=== PATIENT | female | born 1970 | race African-American/Black ===

== ENCOUNTER 2016-12-14 15:46 | Emergency (ER) | payer MEDICARE, OTHER ==
[2016-12-14 15:56] VITALS: BP 124/77; PULSE 82; RESP 20; TEMP 98.8
--- NOTE | 2016-12-14 16:26 | ED ---
ENT HPI - General Chief complaint: ENT Stated complaint: jaw swelling Time Seen by Provider: 12/14/16 16:20 Source: patient Mode of arrival: ambulatory Limitations: no limitations - History of Present Illness Initial comments: Patient is a 46-year-old female presenting to the emergency department with complaints of tooth pain and facial swelling to the right side of her face. Patient states she woke up with the facial swelling this morning. Patient currently complains of pain to tooth #2. Denies chills, fevers, nausea, vomiting, shortness of breath, chest pain, abdominal pain, trismus, or dysphagia. MD complaint: tooth pain Onset/Timin -: days(s) Location: tooth # (2) Severity: mild Severity scale (1-10): 2 Quality: dull Consistency: intermittent Improves with: NSAID Worsens with: eating Context- Dental: history of dental caries Associated Symptoms: toothache - Related Data Home Medications Medication Instructions Recorded Confirmed Citalopram Hydrobromide 40 mg PO DAILY 12/10/14 04/25/16 [Citalopram HBr] Multivitamins, Thera [Multivitamin] 1 tab PO DAILY 04/25/16 04/25/16 buPROPion HCL [Wellbutrin XL] 150 mg PO DAILY 04/25/16 04/25/16 Previous Rx's Medication Instructions Recorded Clindamycin [Cleocin] 300 mg PO Q6H 10 Days 04/25/16 Ibuprofen [Motrin] 800 mg PO Q6HR PRN #30 tab 04/25/16 Ibuprofen [Motrin] 800 mg PO TID PRN #20 tab 12/14/16 Penicillin V Potassium [Pen Vee K] 500 mg PO QID #28 tab 12/14/16 Allergies Allergy/AdvReac Type Severity Reaction Status Date / Time No Known Allergies Allergy Verified 12/14/16 15:56 Review of Systems ROS Statement: Those systems with pertinent positive or pertinent negative responses have been documented in the HPI. ROS Other: All systems not noted in ROS Statement are negative. Past Medical History Past Medical History: No Reported History History of Any Multi-Drug Resistant Organisms: None Reported Past Surgical History: Section, Orthopedic Surgery Additional Past Surgical History / Comment(s): left knee Past Psychological History: Anxiety, Depression Smoking Status: Current every day smoker Past Alcohol Use History: None Reported Past Drug Use History: None Reported General Exam Limitations: no limitations General appearance: alert, in no apparent distress Head exam: Present: atraumatic, normocephalic, normal inspection Eye exam: Present: normal appearance, PERRL, EOMI. Absent: scleral icterus, conjunctival injection, periorbital swelling Expanded Ear exam: Present: normal external inspection Mouth exam: Present: tongue normal. Absent: normal external inspection ( Swelling to right upper jaw), drooling, trismus, tongue elevation Teeth exam: Present: dental tenderness # (2), other (No obvious abscess noted.) . Absent: gingival enlargement Throat exam: normal inspection. negative: tonsillar erythema, tonsillomegaly, tonsillar exudate, R peritonsillar mass, L peritonsillar mass Neck exam: Present: normal inspection, full ROM. Absent: tenderness, lymphadenopathy Respiratory exam: Present: normal lung sounds bilaterally. Absent: respiratory distress, wheezes, rales, rhonchi, stridor Cardiovascular Exam: Present: regular rate, normal rhythm, normal heart sounds GI/Abdominal exam: Present: soft, normal bowel sounds. Absent: tenderness Extremities exam: Present: normal inspection, full ROM. Absent: tenderness Neurological exam: Present: alert, oriented X3, normal gait, other (No focal deficits) Psychiatric exam: Present: normal affect, normal mood Skin exam: Present: warm, dry, intact, normal color Course Vital Signs 12/14/16 15:54 Temperature 98.8 F Pulse Rate 82 Respiratory 20 Rate Blood Pressure 124/77 O2 Sat by Pulse 99 Oximetry Medical Decision Making - Medical Decision Making Dental abscess with toothache to tooth #2. Patient given prescription for penicillin and Motrin and instructed to apply warm compresses. Patient instructed to follow-up with dentist. Patient agrees with treatment plan. Discharge instructions and return parameters reviewed. Disposition Clinical Impression: Dental abscess Disposition: HOME SELF-CARE Condition: Good Instructions: Dental Abscess (ED) Additional Instructions: Continue medication as prescribed. Continue Motrin for pain as necessary. Apply warm compresses 3-4 times a day for 15 minutes to help swelling. Please return to the emergency department in next 24-48 hours if symptoms do not improve or get worse such as swelling gets worse, fevers, difficulty opening her jaw, difficulty swallowing, nausea or vomiting. Follow-up with dentist. Follow-up with primary care physician as needed. Prescriptions: Ibuprofen [Motrin] 800 mg PO TID PRN #20 tab PRN Reason: Pain Penicillin V Potassium [Pen Vee K] 500 mg PO QID #28 tab Referrals: Eugenia Small MD [Primary Care Provider] - 1-2 days Time of Disposition: 16:25
[2016-12-14] MEDS ORDERED: PENICILLIN V POTASSIUM 250 MG TAB PO STA (16:27)
[2016-12-14] MEDS ORDERED: IBUPROFEN 800 MG TAB PO STA (16:28)
== END 2016-12-14 16:52 | disposition home or self-care (01) ==
LOC: EC 15:46
DX: K04.7 Periapical abscess without sinus (principal); F32.9 Major depressive disorder, single episode, unspecified; F41.9 Anxiety disorder, unspecified; F17.200 Nicotine dependence, unspecified, uncomplicated; Z79.899 Other long term (current) drug therapy
CPT/HCPCS: 99283

== ENCOUNTER 2016-12-15 17:57 | Emergency (ER) | payer MEDICARE, OTHER ==
[2016-12-15 18:22] VITALS: BP 135/104; PULSE 83; RESP 16; TEMP 98.9
[2016-12-15] MEDS ORDERED: HYDROcodone/APAP 5-325MG 1 EACH TAB PO STA (19:04)
--- NOTE | 2016-12-15 19:04 | ED ---
ENT HPI - General Chief complaint: Dental/Oral Stated complaint: Dental Time Seen by Provider: 12/15/16 18:42 Source: patient, RN notes reviewed Mode of arrival: ambulatory Limitations: no limitations - History of Present Illness Initial comments: Patient is a 46-year-old male presents to the emergency room for evaluation of dental pain. Patient states she's here yesterday for the same issue. Patient states she began taking antibiotics ibuprofen. Patient states she still having significant amount of pain. Patient states the ibuprofen is not helping. Patient denies any fevers or chills. Patient denies trouble swallowing. Patient denies trouble breathing. Patient states the dentist will not see her until the swelling has subsided. Patient denies any new symptoms or complaints from yesterday. Patient states she needs something to help her with pain. - Related Data Home Medications Medication Instructions Recorded Confirmed Citalopram Hydrobromide 40 mg PO DAILY 12/10/14 04/25/16 [Citalopram HBr] Multivitamins, Thera [Multivitamin] 1 tab PO DAILY 04/25/16 04/25/16 buPROPion HCL [Wellbutrin XL] 150 mg PO DAILY 04/25/16 04/25/16 Previous Rx's Medication Instructions Recorded Clindamycin [Cleocin] 300 mg PO Q6H 10 Days 04/25/16 Ibuprofen [Motrin] 800 mg PO Q6HR PRN #30 tab 04/25/16 Ibuprofen [Motrin] 800 mg PO TID PRN #20 tab 12/14/16 Penicillin V Potassium [Pen Vee K] 500 mg PO QID #28 tab 12/14/16 HYDROcodone/APAP 5-325MG [[place] 1 tab PO Q6HR PRN #12 tab 12/15/16 5-325] Allergies Allergy/AdvReac Type Severity Reaction Status Date / Time No Known Allergies Allergy Verified 12/14/16 15:56 Review of Systems ROS Statement: Those systems with pertinent positive or pertinent negative responses have been documented in the HPI. ROS Other: All systems not noted in ROS Statement are negative. Past Medical History Past Medical History: No Reported History History of Any Multi-Drug Resistant Organisms: None Reported Past Surgical History: Section, Orthopedic Surgery Additional Past Surgical History / Comment(s): left knee Past Psychological History: Anxiety, Depression Smoking Status: Current every day smoker Past Alcohol Use History: None Reported Past Drug Use History: None Reported General Exam - General Exam Comments Initial Comments: Sitting on exam bed, no acute distress. Limitations: no limitations General appearance: alert, in no apparent distress Head exam: Present: atraumatic, normocephalic, normal inspection Eye exam: Present: normal appearance Expanded Mouth exam: Present: other (Mild edema over right maxillary sinus area) Teeth exam: Present: dental caries, dental tenderness # (3/4) Throat exam: normal inspection Neck exam: Present: normal inspection, full ROM. Absent: tenderness, lymphadenopathy Respiratory exam: Present: normal lung sounds bilaterally. Absent: respiratory distress Cardiovascular Exam: Present: regular rate, normal rhythm, normal heart sounds Extremities exam: Present: normal inspection Back exam: Present: normal inspection Neurological exam: Present: alert, oriented X3, CN II-XII intact, normal gait Psychiatric exam: Present: normal affect, normal mood Skin exam: Present: warm, dry, intact, normal color. Absent: rash Course Vital Signs 12/15/16 18:18 Temperature 98.9 F Pulse Rate 83 Respiratory 16 Rate Blood Pressure 135/104 O2 Sat by Pulse 100 Oximetry Medical Decision Making - Medical Decision Making Patient is a 46-year-old female presents to the emergency room for evaluation of dental pain. Patient was here yesterday and given ibuprofen and antibiotics. Will send patient home with [place] and have her follow-up with a dentist. Patient states she understands everything that was discussed with her. Return parameters discussed. Disposition Clinical Impression: Dental abscess Disposition: HOME SELF-CARE Condition: Good Instructions: Dental Abscess (ED) Additional Instructions: Please follow up with a dentist. If you do not have a dentist, you may contact [facility]. Phone number is [phone] for existing clients. For new clients you may call [phone]. Another option is you have is the [employer] [facility]. Phone number is [phone]. Medications as directed. [place] gargles. Cold fluids can sometimes help with pain as well. Return to the Emergency Room for any worsening or changing symptoms. Use cold compresses to the outside of the face. Prescriptions: HYDROcodone/APAP 5-325MG [[place] 5-325] 1 tab PO Q6HR PRN #12 tab PRN Reason: Pain Referrals: Eugenia Small MD [Primary Care Provider] - 1-2 days Time of Disposition: 19:02
== END 2016-12-15 19:10 | disposition home or self-care (01) ==
LOC: EC 17:57
DX: K04.7 Periapical abscess without sinus (principal); F41.9 Anxiety disorder, unspecified; F32.9 Major depressive disorder, single episode, unspecified; F17.200 Nicotine dependence, unspecified, uncomplicated; Z79.899 Other long term (current) drug therapy
CPT/HCPCS: 99282

== ENCOUNTER 2016-12-22 12:23 | Emergency (ER) | payer MEDICARE, OTHER ==
[2016-12-22] MEDS ORDERED: predniSONE 50 MG TAB PO STA (13:21)
[2016-12-22 14:07] LABS: Anisocytosis Slight; Aty Lym Flag Marked; CH 25.9; CHCM 31.8; HCT 34.8 % (34.0-46.0); HDW 3.07; HGB 11.1 gm/dL (11.4-16.0); Hypochromasia Slight; MCHC 31.8 g/dL (31.0-37.0); MCV 81.8 fL (80.0-100.0); Mean Platelet Volume 7.8; RBC 4.25 m/uL (3.80-5.40); WBC 4.5 k/uL (3.8-10.6); WBC (Perox) 4.95
--- NOTE | 2016-12-22 14:13 | XR ---
EXAMINATION TYPE: XR chest 2V DATE OF EXAM: 12/22/2016 2:10 PM COMPARISON: 09/09/2015 HISTORY: Cough pneumonia TECHNIQUE: Frontal and lateral views of the chest are obtained. FINDINGS: There is no focal air space opacity, pleural effusion, or pneumothorax seen. The cardiac silhouette size is within normal limits. The osseous structures are intact. IMPRESSION: No acute cardiopulmonary process.
[2016-12-22 14:15] LABS: Anion Gap 10 mmol/L; Blood Urea Nitrogen 11 mg/dL (7-17); Carbon Dioxide 24 mmol/L (22-30); Chloride 105 mmol/L (98-107); Glucose 99 mg/dL (74-99); Non-African American GFR(MDRD) >60 (>60 ml/min/1.73 sqM); Potassium 3.9 mmol/L (3.5-5.1); Sodium 139 mmol/L (137-145)
--- NOTE | 2016-12-22 14:22 | ED ---
URI HPI - General Chief Complaint: Upper Respiratory Infection Stated Complaint: [place], Chest Tight Time Seen by Provider: 12/22/16 13:06 Source: patient Mode of arrival: ambulatory Limitations: no limitations - History of Present Illness Initial Comments: Planing about cough, bringing up lots of phlegm and feels chest is tight complaining about chest pain off-and-on with a cough for the last few days and it does get worse with the deep breaths. Denies any fever complaining about feeling cold all the time and it worse today area and she does smoke has been smoking for a long time. Denies any headaches no neck stiffness no chest pain or shortness of breath no abdominal pain no frequency urgency dysuria - Related Data Home Medications Medication Instructions Recorded Confirmed Citalopram Hydrobromide 40 mg PO DAILY 12/10/14 12/22/16 [Citalopram HBr] OXcarbazepine [Trileptal] 450 mg PO DAILY 12/22/16 12/22/16 buPROPion HCL [Bupropion HCl Sr] 150 mg PO DAILY 12/22/16 12/22/16 risperiDONE [RisperDAL] 2 mg PO HS 12/22/16 12/22/16 Previous Rx's Medication Instructions Recorded Ibuprofen [Motrin] 800 mg PO TID PRN #20 tab 12/14/16 Penicillin V Potassium [Pen Vee K] 500 mg PO QID #28 tab 12/14/16 Azithromycin [Zithromax Tri-David] 500 mg PO DAILY #3 tab 12/22/16 Allergies Allergy/AdvReac Type Severity Reaction Status Date / Time No Known Allergies Allergy Verified 12/22/16 13:31 Review of Systems ROS Statement: Those systems with pertinent positive or pertinent negative responses have been documented in the HPI. ROS Other: All systems not noted in ROS Statement are negative. Past Medical History Past Medical History: No Reported History History of Any Multi-Drug Resistant Organisms: None Reported Past Surgical History: Section, Orthopedic Surgery Additional Past Surgical History / Comment(s): left knee Past Psychological History: Anxiety, Depression Smoking Status: Current every day smoker Past Alcohol Use History: None Reported Past Drug Use History: None Reported General Exam - General Exam Comments Initial Comments: General: The patient is awake and alert, in no distress, and does not appear acutely ill. Skin: Skin is warm and dry and no rashes or lesions are noted. Eye: Pupils are equal, round and reactive to light, extra-ocular movements are intact; there is normal conjunctiva bilaterally. Ears, nose, mouth and throat: There are moist mucous membranes and no oral lesions. Neck: The neck is supple, there is no tenderness or JVD. Cardiovascular: There is a regular rate and rhythm. No murmur, rub or gallop is appreciated. Respiratory: To auscultation bilateral, exam is consistent with the COPD Gastrointestinal: Soft, non-distended, non-tender abdomen without masses or organomegaly noted. There is no rebound or guarding present. Bowel sounds are unremarkable. Back: There is no tenderness to palpation in the midline. There is no obvious deformity. Musculoskeletal: Normal ROM, no tenderness, There is no pedal edema. There is no calf tenderness or swelling. No cords were appreciated. Neurological: CN II-XII intact, Cranial nerves III through XII are intact. There are no obvious motor or sensory deficits. Coordination appears grossly intact. Speech is normal. Psychiatric: Cooperative, appropriate mood & affect, normal judgment. Limitations: no limitations Course Vital Signs 12/22/16 12/22/16 12:25 15:02 Temperature 99.3 F 100.9 F H Pulse Rate 107 H 98 Respiratory 16 18 Rate Blood Pressure 140/80 122/74 O2 Sat by Pulse 100 96 Oximetry EKG shows normal sinus rhythm ventricular rate is 81 ND interval is 150 QRS duration is 60 QT/QTc is 350/4:30 and review of this EKG does not reveal or show any ST elevation or ST depression or any T-wave inversion and active of any ischemic changes Patient was reassessed 3 times, her d-dimer is elevated Prompted CT angiogram though that came back negative, the CT showed an adrenal mass as well as herpetic lesions, those findings were discussed with the patient and she was advised to follow up with the Dr. Mir, he is her primary care physician so for the hepatic lesion she could have an outpatient ultrasound and for the atrial renal mass? She would need to follow up on that with further imaging. As far as her bronchitis is concerned she be gone home with the Zithromax, Z-David Medical Decision Making - Lab Data Result diagrams: 12/22/16 13:45 12/22/16 13:45 Lab Results 12/22/16 12/22/16 12/22/16 Range/Units 13:45 13:45 13:45 WBC 4.5 (3.8-10.6) k/uL RBC 4.25 (3.80-5.40) m/uL Hgb 11.1 L (11.4-16.0) gm/dL Hct 34.8 (34.0-46.0) % MCV 81.8 (80.0-100.0) fL MCH 26.0 (25.0-35.0) pg MCHC 31.8 (31.0-37.0) g/dL RDW 16.0 H (11.5-15.5) % Plt Count 269 (150-450) k/uL Neutrophils % (Manual) 46.0 % Lymphocytes % (Manual) 39.0 % Monocytes % (Manual) 15.0 % Neutrophils # (Manual) 2.1 (1.3-7.7) k/uL Lymphocytes # (Manual) 1.8 (1.0-4.8) k/uL Monocytes # (Manual) 0.7 (0-1.0) k/uL Nucleated RBCs 0 (0-0) /100 WBC Manual Slide Review Performed Large Platelets Present Hypochromasia Slight Poikilocytosis (manual Present Anisocytosis Slight D-Dimer 0.91 H (<0.60) mg/L FEU Sodium 139 (137-145) mmol/L Potassium 3.9 (3.5-5.1) mmol/L Chloride 105 (98-107) mmol/L Carbon Dioxide 24 (22-30) mmol/L Anion Gap 10 mmol/L BUN 11 (7-17) mg/dL Creatinine 0.74 (0.52-1.04) mg/dL Est GFR (MDRD) Af Amer >60 (>60 ml/min/1.73 sqM) Est GFR (MDRD) Non-Af >60 (>60 ml/min/1.73 sqM) Glucose 99 (74-99) mg/dL Calcium 9.0 (8.4-10.2) mg/dL Troponin I (0.000-0.034) ng/mL 12/22/16 Range/Units 13:45 WBC (3.8-10.6) k/uL RBC (3.80-5.40) m/uL Hgb (11.4-16.0) gm/dL Hct (34.0-46.0) % MCV (80.0-100.0) fL MCH (25.0-35.0) pg MCHC (31.0-37.0) g/dL RDW (11.5-15.5) % Plt Count (150-450) k/uL Neutrophils % (Manual) % Lymphocytes % (Manual) % Monocytes % (Manual) % Neutrophils # (Manual) (1.3-7.7) k/uL Lymphocytes # (Manual) (1.0-4.8) k/uL Monocytes # (Manual) (0-1.0) k/uL Nucleated RBCs (0-0) /100 WBC Manual Slide Review Large Platelets Hypochromasia Poikilocytosis (manual Anisocytosis D-Dimer (<0.60) mg/L FEU Sodium (137-145) mmol/L Potassium (3.5-5.1) mmol/L Chloride (98-107) mmol/L Carbon Dioxide (22-30) mmol/L Anion Gap mmol/L BUN (7-17) mg/dL Creatinine (0.52-1.04) mg/dL Est GFR (MDRD) Af Amer (>60 ml/min/1.73 sqM) Est GFR (MDRD) Non-Af (>60 ml/min/1.73 sqM) Glucose (74-99) mg/dL Calcium (8.4-10.2) mg/dL Troponin I <0.012 (0.000-0.034) ng/mL Disposition Clinical Impression: Bronchitis, Adrenal mass, Hepatic lesion Disposition: HOME SELF-CARE Instructions: Upper Respiratory Infection (ED) Prescriptions: Azithromycin [Zithromax Tri-David] 500 mg PO DAILY #3 tab Referrals: Eugenia Small MD [Primary Care Provider] - 1-2 days
[2016-12-22 14:28] LABS: Add Differential Manual Differential
[2016-12-22 14:31] LABS: Large Platelets Present; Manual Review Performed; Nucleated Red Blood Cells 0 /100 WBC (0-0); Total Cells Counted 100
[2016-12-22] MEDS ORDERED: RX INFO: IV CONTRAST WAS GIVEN 1 EACH MISC MISCELLANE PRN (14:39)
[2016-12-22 15:03] VITALS: RESP 18
--- NOTE | 2016-12-22 15:41 | CT ---
EXAMINATION TYPE: CT angio chest DATE OF EXAM: 12/22/2016 3:29 PM COMPARISON: NONE HISTORY: Patient complains of difficulty breathing and chest pain when coughing. CT DLP: 639 mGycm CONTRAST: CT chest with contrast and 3D reconstruction with MIP imaging is performed with IV Contrast, patient injected with 100 mL of Omnipaque 300. Contrast-enhanced CT of the chest was performed through the course of the pulmonary arteries with maryuri g and mediastinal window settings submitted. 3D reconstruction with MIP imaging was also performed. PULMONARY ARTERIES: The pulmonary arteries and their major tributaries are patent. I do not see ankit dence for sizable filling defect to suggest pulmonary embolic process. LUNGS: Small bilateral pleural effusions with the basilar compressive atelectasis. No focal consolida tion identified. Lingular subpleural nodule measures 4 mm. Subpleural nodule lateral segment right mi ddle lobe and measures 3 mm. MEDIASTINUM: Thoracic aorta is of normal caliber . The heart is not enl arged. No evidence for mediastinal mass. No mediastinal lymph nodes greater than 1cm. HILAR STRUCTURES: No evidence for mass. No hilar lymph nodes greater than 1 cm. UPPER ABDOMEN: 2.4 cm hepatic lesion lateral segment left lobe with Hounsfield unit measurement not w ithin the cystic range. Consider ultrasound correlation to exclude possible solid lesion. Large right adrenal mass measures 3.4 cm. IMPRESSION: 1. No evidence for Pulmonary embolism at this time. 2. Small pleural effusions and basilar compressive atelectasis. Nonspecific subpleural nodularity. 3. Hepatic lesion requires further workup with ultrasound to exclude solid lesion. 4. Right adrenal mass may reflect a large adenoma however lesion of other etiology is not excluded.
[2016-12-22 16:09] VITALS: BP 129/90; PULSE 100; TEMP 100
== END 2016-12-22 16:09 | disposition home or self-care (01) ==
LOC: EC 12:23
DX: J40 Bronchitis, not specified as acute or chronic (principal); E27.9 Disorder of adrenal gland, unspecified; K76.9 Liver disease, unspecified; F41.9 Anxiety disorder, unspecified; F32.9 Major depressive disorder, single episode, unspecified; F17.200 Nicotine dependence, unspecified, uncomplicated; Z79.899 Other long term (current) drug therapy
CPT/HCPCS: 99284 ×2; 36415; 93005; 85379; 80048; 84484; 85025; 71020; 71275; Q9967; J7512

== ENCOUNTER → 2017-01-05 | Outpatient (CLI) | payer MEDICARE, OTHER ==
--- NOTE | 2017-01-05 08:02 | US ---
EXAMINATION TYPE: US liver DATE OF EXAM: 01/05/2017 7:51 AM COMPARISON: CT in PACS CLINICAL HISTORY: Abn L iver Test R94.5, K76.[address] EXAM MEASUREMENTS: Liver Length: 15.0 cm Gallbladder Wall: 0.2 cm CBD: 0.4 cm Right Kidney: 10.9 x 4.2 x 4.5 cm Pancreas: wnl, tail obscured by overlying bowel gas Liver: Cyst anterior left lobe= 3.9 x 1.8 x 3.3 cm Gallbladder: Two gallstones at neck, wall not thickened Evidence for sonographic Jane's sign: No CBD: wnl Right Kidney: wnl, lower pole difficult to visualize due to overlying bowel gas Solid lesion visualized at area of right adrenal gland as seen on CT= 3.6 x 3.2 x 3.7 cm IMPRESSION: 1. 3.6 cm mass in the posterior segment of the right lobe of the liver. 2. Cholelithiasis. 3. Simple appearing 3.9 cm cyst in the left lobe of the liver. A CT scan of the abdomen would be suggested.
== END | disposition home or self-care (01) ==
LOC: RADUSWWP 07:35
PROVIDERS: ATTEND Internal Medicine
DX: K76.89 Other specified diseases of liver (principal); K80.20 Calculus of gallbladder without cholecystitis without obstruction
CPT/HCPCS: 76705

== ENCOUNTER → 2017-04-17 | Outpatient (CLI) | payer MEDICARE, OTHER ==
--- NOTE | 2017-04-18 02:37 | MR ---
EXAMINATION TYPE: MR liver wo/w con DATE OF EXAM: 04/17/2017 COMPARISON: NONE HISTORY: Spot on Liver, US on Pacs CONTRAST: Standard multiplanar, multisequence MRI departmental protocol utilizing 20 mL intravenous MultiHance gadolinium contrast. FINDINGS: Liver has normal size. Bile ducts are not dilated. There is a 3 cm thin-walled cyst in the anterior right lobe of the liver. There is no evidence of pancreatic mass. Kidneys have normal size a nd contour. There is no hydronephrosis. There is an oval-shaped 3.3 x 2.8 cm solid mass involving the right adrenal gland above the right kid doni. The mass has fairly uniform enhancement with contrast. There are multiple gallstones. I see no gallbladder wall thickening. There is evidence of bilateral p leural effusions. IMPRESSION: Small bilateral pleural effusions are not significantly different than CT scan of 12/22/2016. Simple cyst in the anterior right lobe of the liver. Gallstones. Oval-shaped solid enhancing mass involving right adrenal gland that is not changed in size compared t o ultrasound of 01/05/[address] scan of 12/22/2016. This has low attenuation on the CT scan that suggests a more benign etiology. This could be a myelolipoma. This has density of [address] scan.
== END | disposition home or self-care (01) ==
LOC: RADMRIMAIN 14:28
DX: K76.89 Other specified diseases of liver (principal); K80.80 Other cholelithiasis without obstruction; E27.9 Disorder of adrenal gland, unspecified
CPT/HCPCS: 74183; A9577

== ENCOUNTER → 2020-10-02 | Outpatient (CLI) | payer MEDICARE ==
--- NOTE | 2020-10-02 13:55 | XR ---
EXAMINATION TYPE: XR lumbar spine 2 or 3V DATE OF EXAM: 10/02/2020 CLINICAL HISTORY: pain TECHNIQUE: Three views of the lumbar spine are submitted. COMPARISON: None. FINDINGS: There are 5 lumbar type vertebral bodies identified. The lumbar spine shows satisfactory alignment w ithout evidence of acute fracture or dislocation. Vertebral body heights are within normal limits. Disc spaces are within normal limits. The overlying soft tissue appears unremarkable. IMPRESSION: No acute fracture or dislocation is seen in the lumbar spine. ICD 10 NO FRACTURE, INITIAL EVALUATION
--- NOTE | 2020-10-02 13:56 | XR ---
EXAMINATION TYPE: XR thoracic spine 2V DATE OF EXAM: 10/02/2020 CLINICAL HISTORY: pain TECHNIQUE: Frontal, lateral, and swimmer's view of thoracic spine are obtained. COMPARISON: None. FINDINGS: Thoracic spine show satisfactory alignment without evidence of acute fracture or dislocatio n. Vertebral body heights are preserved. Disc spaces are well preserved. Visualized ribs are unrem arkable. IMPRESSION: No acute fracture or dislocation is seen in the thoracic spine. ICD 10 NO FRACTURE, INIT IAL EVALUATION
--- NOTE | 2020-10-02 13:57 | XR ---
EXAMINATION TYPE: XR cervical spine comp DATE OF EXAM: 10/02/2020 CLINICAL HISTORY: pain COMPARISON: NONE TECHNIQUE: Frontal, lateral, oblique, swimmers, and open mouth view of the cervical spine are obtaine d. FINDINGS: The cervical spine is visualized in its entirety from C1 thru the top of T1 level. It is s atisfactory in alignment without evidence of acute fracture or dislocation. The pre-vertebral soft t issue appears within normal limits. Moderate degenerative narrowing identified at C5-6 with ventral a nd dorsal spondylosis. Mild right foraminal encroachment noted at this level. Remaining levels are wi thin normal limits. IMPRESSION: Degenerative changes as discussed above at C5-6.
== END | disposition home or self-care (01) ==
LOC: RADXRMAIN 13:03
PROVIDERS: ATTEND Internal Medicine
DX: M47.812 Spondylosis without myelopathy or radiculopathy, cervical region (principal); M54.6 Pain in thoracic spine; M54.5 Low back pain
CPT/HCPCS: 72050; 72070; 72100

== ENCOUNTER 2020-12-17 11:56 | Emergency (ER) | payer MEDICARE, OTHER ==
[2020-12-17 11:59] VITALS: BP 155/95; PULSE 95; RESP 18; TEMP 98.7
[2020-12-17 14:03] LABS: Appearance,Urine Cloudy (Clear); Bacteria,Urine Occasional /hpf; Bilirubin,Urine Negative (Negative); Blood,Urine Small (Negative); Color,Urine Yellow; Glucose,Urine (UA) Negative (Negative); Ketones,Urine Negative (Negative); Leukocyte Esterase,Urine Large (Negative); Mucus,Urine Moderate /hpf; Nitrite,Urine Negative (Negative); Protein,Urine Trace (Negative); RBC,Urine 152 /hpf (0-5); Specific Gravity,Urine 1.015 (1.001-1.035); Squamous Epithelial Cell,Urine 13 /hpf (0-4); Urobilinogen,Urine <2.0 mg/dL (<2.0); WBC,Urine 110 /hpf (0-5)
--- NOTE | 2020-12-17 14:14 | ED ---
Female Urogenital HPI - General Chief complaint: Urogenital Stated complaint: Female Time Seen by Provider: 12/17/20 12:30 Source: patient Mode of arrival: ambulatory Limitations: no limitations - History of Present Illness Initial comments: Patient is a 50-year-old female presenting to emergency Department with complaints of vaginal irritation and itchiness for the last 2 days. Patient states she recently had unprotected intercourse and is concerned for possible STD. She denies any fever or chills, mild dysuria. No vaginal sores. She denies any discharge. She has no further complaints. - Related Data Home Medications Medication Instructions Recorded Confirmed Citalopram Hydrobromide 40 mg PO DAILY 12/10/14 02/18/17 [Citalopram HBr] OXcarbazepine [Trileptal] 450 mg PO DAILY 12/22/16 02/18/17 buPROPion HCL [Bupropion HCl Sr] 150 mg PO DAILY 12/22/16 02/18/17 risperiDONE [RisperDAL] 2 mg PO HS 12/22/16 02/18/17 Allergies Allergy/AdvReac Type Severity Reaction Status Date / Time No Known Allergies Allergy Verified 12/17/20 11:59 Review of Systems ROS Statement: Those systems with pertinent positive or pertinent negative responses have been documented in the HPI. ROS Other: All systems not noted in ROS Statement are negative. Past Medical History Past Medical History: Liver Disease, Thyroid Disorder Additional Past Medical History / Comment(s): scheduled for liver biopsy 02/2017 History of Any Multi-Drug Resistant Organisms: None Reported Past Surgical History: Section, Orthopedic Surgery Additional Past Surgical History / Comment(s): left knee Past Anesthesia/Blood Transfusion Reactions: No Reported Reaction Past Psychological History: Anxiety, Depression Smoking Status: Current every day smoker Past Alcohol Use History: Occasional Past Drug Use History: Cocaine - Past Family History Father Family Medical History: No Reported History General Exam - General Exam Comments Initial Comments: GENERAL: Patient is well-developed and well-nourished. Patient is nontoxic and in no acute distress. HEAD: Atraumatic, normocephalic. EYES: Pupils equal round and reactive to light, extraocular movements intact, sclera anicteric, conjunctiva are normal. Eyelids were unremarkable. ENT: TMs normal, nares patent, oropharynx clear without exudates. Moist mucous membranes. NECK: Normal range of motion, supple without lymphadenopathy or JVD. LUNGS: Unlabored respirations. Breath sounds clear to auscultation bilaterally and equal. No wheezes rales or rhonchi. HEART: Regular rate and rhythm without murmurs, rubs or gallops. ABDOMEN: Soft, nontender, normoactive bowel sounds. No guarding, no rebound. No masses appreciated. MUSCULOSKELETAL: Normal extremities with adequate strength and normal range of motion, no pitting or edema. No clubbing or cyanosis. NEUROLOGICAL: Patient is alert and oriented x 3. Normal speech, normal gait. PSYCH: Normal mood, normal affect. SKIN: Warm, Dry, normal turgor, no rashes or lesions noted. Limitations: no limitations External exam: Present: normal external exam Speculum exam: Present: cervical discharge. Absent: vaginal bleeding, foreign body By manual exam: Present: normal by manual exam Course Vital Signs 12/17/20 11:57 Temperature 98.7 F Pulse Rate 95 Respiratory 18 Rate Blood Pressure 155/95 O2 Sat by Pulse 96 Oximetry Medical Decision Making - Medical Decision Making She is a 50-year-old female here for genital irritation, itchiness, concern for STD after having unprotected intercourse 2-3 days ago. Her exam does reveal some mild cervical discharge, no other abnormalities. Urine shows occasional bacteria, many WBCs. Rapid Trichomonas is positive. Given patient's recent history, patient will be treated for Trichomonas, gonorrhea and chlamydia. Patient given Rocephin, azithromycin and Flagyl today. She'll follow-up with her doctor. Patient is stable for discharge. Patient is in agreement with this plan of care. Return parameters were discussed with the patient and they verbalized understanding. Case discussed with Dr. Thurston. - Lab Data Lab Results 12/17/20 12/17/20 12/17/20 Range/Units 13:40 13:40 13:40 Urine Color Yellow Urine Appearance Cloudy H (Clear) Urine pH 6.0 (5.0-8.0) Ur Specific [place] 1.015 (1.001-1.035) Urine Protein Trace H (Negative) Urine Glucose (UA) Negative (Negative) Urine Ketones Negative (Negative) Urine Blood Small H (Negative) Urine Nitrite Negative (Negative) Urine Bilirubin Negative (Negative) Urine Urobilinogen <2.0 (<2.0) mg/dL Ur Leukocyte Esterase Large H (Negative) Urine RBC 152 H (0-5) /hpf Urine WBC 110 H (0-5) /hpf Ur Squamous Epith Cells 13 H (0-4) /hpf Urine Bacteria Occasional H (None) /hpf Urine Mucus Moderate H (None) /hpf Urine HCG, Qual Not Detected (Not Detectd) Trichomonas Ag (Rapid) Positive H (Negative) Disposition Clinical Impression: Trichomonas vaginalis infection, Vaginitis Disposition: HOME SELF-CARE Condition: Stable Instructions (If sedation given, give patient instructions): Trichomoniasis (ED) Additional Instructions: Please return to the Emergency Department if symptoms worsen or any other concerns. Do not drink alcohol for 48 hours after this medication. Practice safe sex. Follow-up with your doctor. Is patient prescribed a controlled substance at d/c from ED?: No Referrals: Eugenia Small MD [Primary Care Provider] - 1-2 days Time of Disposition: 14:54
[2020-12-17] MEDS ORDERED: metroNIDAZOLE 500 MG TAB PO STA (14:43)
[2020-12-17] MEDS ORDERED: AZITHROMYCIN 250 MG TAB PO STA (14:43)
[2020-12-17] MEDS ORDERED: cefTRIAXone 250 MG VIAL IM STA (14:43)
[2020-12-18 12:47] LABS: C. trachomatis,PCR Negative (Neg,Equiv); Chlamydia trachomatis Source Cervix; N. gonorrhoeae,PCR Negative (Neg,Equiv); Neisseria Source Cervix
== END 2020-12-17 15:17 | disposition home or self-care (01) ==
LOC: EC 11:56
DX: A59.01 Trichomonal vulvovaginitis (principal); F17.200 Nicotine dependence, unspecified, uncomplicated; Z79.899 Other long term (current) drug therapy; F41.9 Anxiety disorder, unspecified; F32.9 Major depressive disorder, single episode, unspecified; F14.90 Cocaine use, unspecified, uncomplicated
CPT/HCPCS: 99283 ×2; 96372 ×2; 81001; 81025; 87808; 87491; 87591; 87070; 87086; 87077; 87186; J0696

== ENCOUNTER → 2022-01-10 | Outpatient (CLI) | payer MEDICARE, OTHER ==
--- NOTE | 2022-01-13 09:48 | MM ---
Reason for exam: clinical finding. Last mammogram was performed 6 years and 8 months ago. History: Patient is postmenopausal. Indicated problem(s): lump or thickening in the left breast. Physical Findings: A clinical breast exam by your physician is recommended on an annual basis and results should be correlated with mammographic findings. MG 3D Diag Mammo W/Cad JEAN Bilateral CC and MLO view(s) were taken. Prior study comparison: May 16, 2015, bilateral MG screening mammo w CAD. There are scattered fibroglandular densities. No significant changes when compared with prior studies. ASSESSMENT: Benign, BI-RAD 2 RECOMMENDATION: Routine screening mammogram of both breasts in 1 year. Manage on a clinical basis with regard to left palpable.
--- NOTE | 2022-01-13 09:48 | USB ---
Reason for exam: clinical finding. History: Patient is postmenopausal. Indicated problem(s): lump or thickening in the left breast. US Breast LT Left complete breast ultrasound includes all four quadrants, the retroareolar region and axilla. Finding demonstrates no cystic or solid lesion seen. ASSESSMENT: Negative, BI-RAD 1 RECOMMENDATION: Routine screening mammogram of both breasts in 1 year. Manage on a clinical basis with regard to palpable.
== END | disposition home or self-care (01) ==
LOC: RADMAMWWP 14:25
PROVIDERS: ATTEND Family Medicine
DX: N63.20 Unspecified lump in the left breast, unspecified quadrant (principal)
CPT/HCPCS: 77066; 76641; G0279; 77062

== ENCOUNTER → 2023-01-30 | Outpatient (CLI) | payer MEDICARE, OTHER ==
--- NOTE | 2023-02-02 08:13 | MM ---
Reason for Exam: Screening (asymptomatic). Last screening mammogram was performed 12 month(s) ago. Patient History: Menarche at age 16. First Full-Term at age 18. Postmenopausal. Maternal grandmother had ovarian cancer under age 50. Risk Values: Meliza 5 year model risk: 0.7%. NCI Lifetime model risk: 5.8%. Prior Study Comparison: 05/16/2015 Bilateral Screening Mammogram, [facility]. 01/10/2022 Bilateral Diagnostic Mammogram, [facility]. Tissue Density: The breast tissue is heterogeneously dense. This may lower the sensitivity of mammography. Findings: Analyzed By CAD. Benign-appearing bilateral axillary lymph nodes are redemonstrated. There is no suspicious group of microcalcifications or new suspicious mass in either breast. Overall Assessment: Negative, BI-RAD 1 Management: Screening Mammogram of both breasts in 1 year. A clinical breast exam by your physician is recommended on an annual basis and results should be correlated with mammographic findings. Electronically signed and approved by: Severiano Dudley M.D.
== END | disposition home or self-care (01) ==
LOC: RADMAMWWP 07:03
PROVIDERS: ATTEND Family Medicine
DX: Z12.31 Encounter for screening mammogram for malignant neoplasm of breast (principal); Z78.0 Asymptomatic menopausal state
CPT/HCPCS: 77063; 77067

== ENCOUNTER → 2023-11-10 | Outpatient (CLI) | payer MEDICARE, OTHER ==
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
== END ==
LOC: 3 N SLEEP 15:03
PROVIDERS: ATTEND Internal Medicine Critical Care Medicine
DX: I10 Essential (primary) hypertension (principal); F31.9 Bipolar disorder, unspecified; F41.9 Anxiety disorder, unspecified; E78.5 Hyperlipidemia, unspecified; G89.29 Other chronic pain; M19.90 Unspecified osteoarthritis, unspecified site; R06.83 Snoring; F14.10 Cocaine abuse, uncomplicated; F10.10 Alcohol abuse, uncomplicated; E07.9 Disorder of thyroid, unspecified; F17.200 Nicotine dependence, unspecified, uncomplicated; Z73.6 Limitation of activities due to disability; Z87.19 Personal history of other diseases of the digestive system
CPT/HCPCS: 99211

== ENCOUNTER → 2023-12-28 | Outpatient (CLI) | payer MEDICARE, OTHER ==
--- NOTE | 2023-12-29 13:42 | P.PCN ---
Date of Procedure: 12/29/23 Operative Findings: Home sleep study report Date of service is 12/29/2023 Pertinent history This is a 23-year-old -[place] female patient presents to the sleep center for a sleep apnea evaluation. The patient has a regular sleep schedule. The patient has been going to bed around 2 AM and getting out of bed at around 8 AM in the morning. She is sleeping few hours when she wakes up and she goes back to sleep and during those interruption she undergoes some household activity and work. She has history of snoring. No witnessed apneas. She is living alone. She has recovered from previous history of alcoholism and cocaine abuse. She has hypertension hyperlipidemia. Pertinent physical findings The patient has a weight of 183 pounds with a body mass index of 30.4. The patient has an Dawson score of 2. Technical description The [employer] apnea link system was used to complete this home sleep study. There is a type III home sleep study. This recording duration was done and 7 hours and 22 minutes. The study started at 12:32 AM and it ended at 7:55 AM. There was a total of 6022 minutes of flow monitoring and 6 hours and 6 minutes of oxygen saturation monitoring. Results Respiratory analysis showed a total of 38 obstructive apneas and 2 obstructive hypopneas and the resulting AHI was 5.8 consistent with mild obstructive sleep apnea Oxygenation analysis The patient had significant nocturnal oxygen desaturations. Note that her baseline pulse ox while awake was 96%. Average pulse ox during sleep was 87% and the lowest pulse ox was 51% and the patient spent approximately 5 hours and 50 minutes after sleep below pulse ox of 89% Cardiac summary Average heart rate was 72 with a minimum heart rate of 40 and a maximum heart rate of 240. Assessment Mild obstructive sleep apnea with an AHI of 5.8 Severe nocturnal oxygen desaturation with a minimum pulse ox of 51%. Consider possibility of obesity hypoventilation syndrome. Dawson score of 2 Irregular sleep schedule and poor sleep hygiene measures Bipolar disorder History of substance abuse including alcoholism and cocaine use, currently in remission Hypertension Hyperlipidemia Chronic back pain Osteoarthritis Obesity with a BMI of 30.4 Medical disability and the patient is also security Plan This is a case of mild obstructive sleep apnea. Obstructive events were essentially in the form of apneas and the patient had AHI of 5.8. Nevertheless, of concern is the significant nocturnal oxygen desaturations. I think it is worthwhile to obtain a baseline blood gas to assess the patient's acid-base status and pCO2 on room air. Based on her significant nocturnal oxygen desaturations, I think is worthwhile considering this patient on CPAP therapy if she is willing to undertake the treatment. The patient will be offered CPAP therapy and should be offered to come into the sleep center for a CPAP titration and this will also help her with her significant nocturnal oxygen saturations. At the same time, the patient is working on regulating her sleep schedule and maintaining good sleep hygiene measures. Will continue to follow
== END ==
LOC: 3 N SLEEP 10:32
PROVIDERS: ATTEND Internal Medicine Critical Care Medicine
DX: G47.33 Obstructive sleep apnea (adult) (pediatric) (principal); G47.36 Sleep related hypoventilation in conditions classified elsewhere; G89.29 Other chronic pain; I10 Essential (primary) hypertension; E78.5 Hyperlipidemia, unspecified; E66.9 Obesity, unspecified; M19.90 Unspecified osteoarthritis, unspecified site; F10.11 Alcohol abuse, in remission; F14.91 Cocaine use, unspecified, in remission; F17.200 Nicotine dependence, unspecified, uncomplicated; Z68.30 Body mass index [BMI] 30.0-30.9, adult

== ENCOUNTER 2024-02-08 19:22 | Outpatient (CLI) | payer MEDICARE, OTHER ==
--- NOTE | 2024-02-21 23:20 | P.PCN ---
Date of Procedure: 02/08/24 Operative Findings: CPAP titration report Date of services 02/08/2024 Pertinent history 23-year-old female patient diagnosed having ISHA with an AHI of 5.8 along with severe nocturnal oxygen saturation likely secondary to a component of obesity hypoventilation syndrome. Comorbidities are multiple including bipolar disorder, substance abuse/alcoholism currently in remission along with hypertension hyperlipidemia chronic back pain and osteoarthritis. The patient is obese with a BMI of 30.4. Pertinent physical findings The patient's weight is 183 pounds with a body mass index of 30.4 Technical description The patient was studied using a standard complex polysomnography protocol that included recording of the 2 EKG, Central, occipital and frontal EEG, right and left outer canthus EOG, submental EMG, right and left anterior tibialis EMG, respiratory airflow by thermocouple and or pressure/flow transducer, respiratory efforts by abdominal and thoracic PVDF belts, oxygen saturation by cable oximetry. Position by observation synchronized the PSG. Stepwise CPAP titration was done to eliminate obstructive respiratory events. Equipment used: [employer]. Sleep architecture The total recording duration was 356.5 minutes. The total sleep time was 147.5 minutes. The wake after sleep onset time was 92 minutes. The latency to sleep onset was 116.5 minutes. The sleep architecture was characterized by 6.8% stage I, 66.8% stage II, 0% stage III, 29.2% REM sleep. Total arousal index was 9.8 Respiratory summary CPAP titration was started initially at a pressure of 4 cm of water and subsequently the pressure was brought up to 5 cm of water. No oxygen was utilized. At that level of pressure, the patient had no obstructive respiratory events. This pressure was enough to eliminate constant oxygen saturations. No desaturations were encountered the various sleep stages and body positions. Sleep continuity summary There was a total of 24 arousals with an index of 9.8. Respiratory arousal index was 0.4 Periodic limb movement summary There was a total of 97 periodic limb movements with an index of 39.5. There were only 3 periodic limb movement activity with arousals with an index of 1.2 Assessment Mild ISHA with an AHI of 5.8. Associated with severe nocturnal Oxygen s aturations. Patient responded nicely to CPAP therapy with illumination of the obstructive respiratory events. [place] score of 2 Irregular sleep schedule with poor sleep hygiene measures Bipolar disorder History of substance use and alcoholism and cocaine use currently in remission Hypertension Hyperlipidemia Chronic back pain/osteoarthritis Obesity BMI of 30.4 Medical debility and the patient is currently on Social Security Plan Will discuss findings with the patient. Obviously, CPAP pressure of 5 cm of water was enough to eliminate obstructive respiratory events. The patient was subsequently started on CPAP therapy pressure of 5 cm of water. This is a low pressure. Was enough to eliminate obstructive respiratory events and improve the patient's oxygenation. Will assess the patient's overall clinical response while on treatment as the patient had a low sleep efficiency while on treatment. Total tolerability of CPAP therapy is in question. Will give it a try with CPAP of 5 cm. Will also provide the patient a AirFit P10 nasal mask/pillows. Encourage weight loss. See him back in office in 30 to 90 days to assess clinical response and compliancy.
== END 2024-02-09 03:45 | disposition home or self-care (01) ==
LOC: 3 N SLEEP 19:22
PROVIDERS: ATTEND Internal Medicine Critical Care Medicine
DX: G47.33 Obstructive sleep apnea (adult) (pediatric) (principal); F31.9 Bipolar disorder, unspecified; E66.9 Obesity, unspecified; I10 Essential (primary) hypertension; G89.29 Other chronic pain; M19.90 Unspecified osteoarthritis, unspecified site; F10.20 Alcohol dependence, uncomplicated; F19.11 Other psychoactive substance abuse, in remission; F14.91 Cocaine use, unspecified, in remission; E78.5 Hyperlipidemia, unspecified; R53.81 Other malaise; Z68.30 Body mass index [BMI] 30.0-30.9, adult; F17.200 Nicotine dependence, unspecified, uncomplicated
CPT/HCPCS: 95811

== ENCOUNTER 2024-02-20 21:36 | Emergency (ER) | payer MEDICARE, OTHER ==
--- NOTE | 2024-02-20 21:45 | ED ---
General Adult HPI - General Chief complaint: ENT Stated complaint: Right ear pain Time Seen by Provider: 02/20/24 21:43 Source: patient, RN notes reviewed, old records reviewed Mode of arrival: ambulatory Limitations: no limitations - History of Present Illness Initial comments: 53-year-old female with right ear pain. Patient states that for the past s everal days she has had pain in the right ear with some minimal drainage. No fever. No URI symptoms. She has been attempting to rinse the ear with hydrogen peroxide and tap water. No sore throat. No other complaints. - Related Data Home Medications Medication Instructions Recorded Confirmed Citalopram Hydrobromide 40 mg PO DAILY 12/10/14 02/18/17 [Citalopram HBr] OXcarbazepine [Trileptal] 450 mg PO DAILY 12/22/16 02/18/17 buPROPion HCL [Bupropion HCl Sr] 150 mg PO DAILY 12/22/16 02/18/17 risperiDONE [RisperDAL] 2 mg PO HS 12/22/16 02/18/17 Previous Rx's Medication Instructions Recorded Ciprofloxacin-Dexameth [Ciprodex 4 drops RIGHT EAR BID #7.5 ml 02/20/24 Otic Susp] Allergies Allergy/AdvReac Type Severity Reaction Status Date / Time No Known Allergies Allergy Verified 12/17/20 11:59 Review of Systems ROS Statement: Those systems with pertinent positive or pertinent negative responses have been documented in the HPI. ROS Other: All systems not noted in ROS Statement are negative. Past Medical History Past Medical History: Liver Disease, Thyroid Disorder Additional Past Medical History / Comment(s): scheduled for liver biopsy 02/2017 History of Any Multi-Drug Resistant Organisms: None Reported Past Surgical History: Section, Orthopedic Surgery Additional Past Surgical History / Comment(s): left knee Past Anesthesia/Blood Transfusion Reactions: No Reported Reaction Past Psychological History: Anxiety, Depression Smoking Status: Current every day smoker Past Alcohol Use History: Occasional Past Drug Use History: Cocaine - Past Family History Father Family Medical History: No Reported History General Exam Limitations: no limitations General appearance: alert, in no apparent distress Head exam: Present: atraumatic, normocephalic Eye exam: Present: normal appearance, PERRL ENT exam: Absent: TM's normal bilaterally (Right tympanic membrane cannot be visualized secondary to erythema and drainage of the external auditory canal.) Respiratory exam: Present: normal lung sounds bilaterally. Absent: respiratory distress, wheezes Cardiovascular Exam: Present: regular rate, normal rhythm GI/Abdominal exam: Present: soft. Absent: distended, tenderness Neurological exam: Present: alert, oriented X3, CN II-XII intact, normal gait. Absent: motor sensory deficit Psychiatric exam: Present: normal affect, normal mood Course Vital Signs 02/20/24 21:36 Temperature 98.5 F Pulse Rate 95 Respiratory 16 Rate Blood Pressure 137/88 O2 Sat by Pulse 99 Oximetry Medical Decision Making - Medical Decision Making Was pt. sent in by a medical professional or institution (, [facility], PUBLIC SPEAKING TEACHER, urgent care, hospital, or [facility]...) When possible be specific @ -No Did you speak to anyone other than the patient for history (EMS, parent, family, police, friend...)? What history was obtained from this source @ -No Did you review nursing and triage notes (agree or disagree)? Why? @ -I reviewed and agree with nursing and triage notes Were old charts reviewed (outside hosp., previous admission, EMS record, old EKG, old radiological studies, urgent care reports/EKG's, [facility] records)? Report findings @ -No old charts were reviewed Differential Diagnosis otitis externa, otitis media, middle ear effusion, URI, dental abscess, TMJ @ -Not applicable EKG interpreted by me (3pts min.). @ -As above X-rays interpreted by me (1pt min.). @ -None done CT interpreted by me (1pt min.). @ -None done U/S interpreted by me (1pt. min.). @ -None done What testing was considered but not performed or refused? (CT, X-rays, U/S, labs)? Why? @ -None What meds were considered but not given or refused? Why? @ -None Did you discuss the management of the patient with other professionals (professionals i.e. [facility] Bowman, PUBLIC SPEAKING TEACHER, lab, RT, psych nurse, social service agency director, intellectual property lawyer, teacher, division officer weapons department, counter caser)? Give summary @ -No Was smoking cessation discussed for >3mins.? @ -No Was critical care preformed (if so, how long)? @ -No Were there social determinants of health that impacted care today? How? (Homelessness, low income, unemployed, alcoholism, drug addiction, trans portation, low edu. Level, literacy, decrease access to med. care, [facility], rehab)? @ -No Was there de-escalation of care discussed even if they declined (Discuss DNR or withdrawal of care, Hospice)? DNR status @ -No What co-morbidities impacted this encounter? (DM, HTN, Smoking, COPD, CAD, Cancer, CVA, ARF, Chemo, Hep., AIDS, mental health diagnosis, sleep apnea, morbid obesity)? @ -None Was patient admitted / discharged? Hospital course, mention meds given and route, prescriptions, significant lab abnormalities, going to OR and other pertinent info. @53-year-old female with right ear pain and drainage. She has an erythematous draining external auditory canal on exam. She started on Ciprodex. And is instructed to take Tylenol for pain. She will follow closely with her primary care provider. Return parameters discussed. Undiagnosed new problem with uncertain prognosis? @ -No Drug Therapy requiring intensive monitoring for toxicity (Heparin, Nitro, Insulin, Cardizem)? @ -No Were any procedures done? @ -No Diagnosis/symptom? @Otitis externa Acute, or Chronic, or Acute on Chronic? @ -Acute Uncomplicated (without systemic symptoms) or Complicated (systemic symptoms)? @ -Default Side effects of treatment? @ -No Exacerbation, Progression, or Severe Exacerbation? @ -No Poses a threat to life or bodily function? How? (Chest pain, [place], [place], pneumonia, PE, COPD, DKA, ARF, appy, cholecystitis, CVA, Diverticulitis, Homicidal, Suicidal, threat to staff... and all critical care pts) @ -No Disposition Clinical Impression: Otitis externa Disposition: HOME SELF-CARE Condition: Good Instructions (If sedation given, give patient instructions): Swimmer's Ear ( ED), Earache (ED) Prescriptions: Ciprofloxacin-Dexameth [Ciprodex Otic Susp] 4 drops RIGHT EAR BID #7.5 ml Is patient prescribed a controlled substance at d/c from ED?: No Referrals: Diana Drake MD [Primary Care Provider] - 1-2 days Time of Disposition: 21:44
[2024-02-20] MEDS: KETOROLAC 15 MG/ML 1 ML VIAL IM STA (21:51)
[2024-02-20 22:42] VITALS: BP 137/88; PULSE 95; RESP 16; TEMP 98.5
== END 2024-02-20 21:53 | disposition home or self-care (01) ==
LOC: EC 21:36
DX: H60.91 Unspecified otitis externa, right ear (principal); F17.200 Nicotine dependence, unspecified, uncomplicated
CPT/HCPCS: 99282; 96372; J1885